=== PATIENT | female | born 1960 | race Hispanic/Latino ===

== ENCOUNTER 2016-09-17 07:55 | Emergency (ER) | payer BC ==
[2016-09-17] MEDS ORDERED: Lidocaine 5% Patch TD STA (09:05)
[2016-09-17] MEDS ORDERED: Lidocaine 5% Patch TD ONE (09:20)
[2016-09-17] MEDS ORDERED: HYDROmorphone 1 mg/ml ISec IM STA (09:55)
--- NOTE | 2016-09-17 10:11 | C.PDOC ---
History Of Present Illness 55 y/o female presents to the ED complaining of right leg pain after she slipped in the shower. She reports that she did not fall, but her feet slipped causing her legs to spread out wide. She notes that the pain is mostly to the right posterior thigh and she thinks she badly strained her muscle. Patient admits to some nausea due to pain but she denies any vomiting, weakness, numbness, other pain or injury, or other complaints. Chief Complaint (Nursing): Lower Extremity Problem/Injury History Per: Patient History/Exam Limitations: no limitations Onset/Duration Of Symptoms: Hrs, Sudden Onset, Persistent Current Symptoms Are (Timing): Still Present Recent travel outside of the [place]: No Past Medical History Reviewed: Historical Data, Nursing Documentation, Vital Signs Vital Signs: Last Vital Signs Temp 97.9 F 09/17/16 14:17 Pulse 72 09/17/16 14:17 Resp 17 09/17/16 14:17 BP 94/54 L 09/17/16 14:17 Pulse Ox 98 09/17/16 18:19 - Medical History PMH: No Chronic Diseases Surgical History: No Surg Hx Family History: States: Unknown Family Hx - Social History Hx Tobacco Use: No Hx Alcohol Use: No Hx Substance Use: No - Immunization History Hx Tetanus Toxoid Vaccination: No Hx Influenza Vaccination: No Hx Pneumococcal Vaccination: No Review Of Systems Except As Marked, All Systems Reviewed And Found Negative. Gastrointestinal: Positive for: Nausea (due to pain). Negative for: Vomiting Musculoskeletal: Positive for: Leg Pain (right) Neurological: Negative for: Weakness, Numbness Physical Exam - Physical Exam Appears: Non-toxic, No Acute Distress Skin: Normal Color, Warm, Dry Head: Atraumatic, Normacephalic Neck: Normal ROM Chest: Symmetrical Cardiovascular: Rhythm Regular Respiratory: Normal Breath Sounds, No Rales, No Rhonchi, No Wheezing Gastrointestinal/Abdominal: Normal Exam, Soft, No Tenderness Back: Normal Inspection, No Vertebral Tenderness Extremity: Normal ROM, Tenderness (diffuse, right posterior thigh; no bony tenderness), No Deformity, No Swelling Pulses: Left Dorsalis Pedis: Normal, Right Dorsalis Pedis: Normal Neurological/Psych: Oriented x3, Normal Speech, Normal Cognition, Normal Sensation ED Course And Treatment O2 Sat by Pulse Oximetry: 98 (ra) Pulse Ox Interpretation: Normal Progress Note: Patient was treated with Zofran PO and Toradol IM. On reevaluation patient reports pain persists - given Dialudid IM. Patient reports pain slightly subsided but remains persistent - Lidoderm applied and patient given Dilaudid IM and Valium PO. On further reevaluation patient reports improvement of leg pain. However patient fels nauseaous after getting Dilaudid. IVF bolus and Zofran given. On re-evaluation patient feels better and is being d /c home. Discharged with pain medication and advised to follow up with physician /clinic in 1-2 days and return to the ED at any time for new or concerning symptoms. Disposition - Disposition Referrals: Ashlee Nash MD [Staff Provider] - Disposition: HOME/ ROUTINE Disposition Time: 14:30 Condition: IMPROVED Additional Instructions: Follow up with PMD within 1-2 days. Return to ED if feel worse. Prescriptions: Ibuprofen [Motrin Tab] 600 mg PO Q8 #30 tab oxyCODONE/Acetaminophen [Percocet 5/325 mg Tab] 1 tab PO QID PRN #20 tab PRN Reason: Pain diaZEpam [Valium] 2 mg PO TID #15 tab Ondansetron [Zofran Odt] 1 - 2 tab PO .Q4-6H PRN #20 odt PRN Reason: Nausea/Vomiting Instructions: Muscle Strain (ED) - Clinical Impression Clinical Impression: Muscle strain - PA / MILLIN[employer] BLOCKER / Resident Statement MD/DO has reviewed & agrees with the documentation as recorded. - Scribe Statement The provider has reviewed the documentation as recorded by the Scribe (Chanelle Jerome) All medical record entries made by the Scribe were at my direction and personally dictated by me. I have reviewed the chart and agree that the record accurately reflects my personal performance of the history, physical exam, medical decision making, and the department course for this patient. I have also personally directed, reviewed, and agree with the discharge instructions and disposition.
[2016-09-17] MEDS ORDERED: Sodium Chloride 0.9% 1,000 ML ONE (12:31)
[2016-09-17] MEDS ORDERED: Sodium Chloride 0.9% 1,000 ML IV STA (12:32)
[2016-09-17 14:18] VITALS: BP 94/54; PULSE 72; RESP 17; TEMP 97.9
[2016-09-17 18:19] VITALS: O2SAT 98
== END 2016-09-17 14:38 | disposition home or self-care (01) ==
LOC: C.ER 07:55
DX: S76.311A Strain of muscle, fascia and tendon of the posterior muscle group at thigh level, right thigh, initial encounter (principal); W18.49XA Other slipping, tripping and stumbling without falling, initial encounter; Y93.E1 Activity, personal bathing and showering; Y92.002 Bathroom of unspecified non-institutional (private) residence as the place of occurrence of the external cause
CPT/HCPCS: 96372; 96374; 99285; J1170; J1885; J2765; J7040